=== PATIENT | female | born 1980 | race Caucasian/White ===

== ENCOUNTER 2023-11-12 12:45 | Inpatient (IN) | payer OTHER ==
[2023-11-12 13:42] VITALS: BMI 24.9
[2023-11-12] MEDS ORDERED: BUPRENORPHINE HCL 150 MCG, BUPRENORPHINE HCL 75 MCG BC PRN (15:37)
[2023-11-12] MEDS ORDERED: LOPERAMIDE HCL 2 MG CAPSULE PO PRN (15:37)
[2023-11-12] MEDS ORDERED: BENZOCAINE/MENTHOL (CHLORASEPTIC ) LOZENGE MM PRN (15:37)
[2023-11-12] MEDS ORDERED: MAG HYDROX/AL HYDROX/SIMETH 30 ML UNIT-DOSE CUP PO PRN (15:37)
[2023-11-12] MEDS ORDERED: BENZONATATE 200 MG CAPSULE PO PRN (15:37)
[2023-11-12] MEDS ORDERED: NALOXONE HCL (KLOXXADO) 8 MG SPRAY NS PRN (15:37)
[2023-11-12] MEDS ORDERED: BISMUTH SUBSALICYLATE 524 MG/30 ML PO PRN (15:37)
[2023-11-12] MEDS ORDERED: ACETAMINOPHEN 325 MG TABLET (FP) PO PRN (15:37)
[2023-11-12] MEDS ORDERED: ONDANSETRON *ODT* 4 MG TABLET SL PRN (15:37)
[2023-11-12] MEDS ORDERED: POLYETHYLENE GLYCOL (HEALTHYLAX) 3350 17 GM PACKET PO PRN (15:37)
[2023-11-12] MEDS ORDERED: DICYCLOMINE HCL 10 MG CAPSULE PO PRN (15:37)
[2023-11-12] MEDS ORDERED: guaiFENesin 600 MG TABLET.ER (FP) PO PRN (15:37)
[2023-11-12] MEDS ORDERED: NALOXONE HCL 0.4 MG/ML VIAL IM PRN (15:37)
[2023-11-12] MEDS ORDERED: IBUPROFEN 400 MG TABLET (FP) PO PRN (15:37)
[2023-11-12] MEDS: BUPRENORPHINE HCL 150 MCG, BUPRENORPHINE HCL 75 MCG BC ONE (17:08)
[2023-11-12] MEDS: PRENATAL VITAMINS W/ FOLIC ACID TABLET (FP) PO SCH (17:09)
[2023-11-12] MEDS: cloNIDine HCL 0.1 MG TABLET PO ONE (17:09)
[2023-11-12] MEDS: NICOTINE POLACRILEX 2 MG GUM BUC PRN (20:28)
[2023-11-12] MEDS: MELATONIN 5 MG TABLETS PO SCH (22:25)
[2023-11-12] MEDS: cloNIDine HCL 0.1 MG TABLET PO PRN (22:25)
[2023-11-12] MEDS: THIAMINE HCL 100 MG TABLET (FP) PO SCH (22:25)
[2023-11-12] MEDS: diazePAM 5 MG TABLET PO PRN (22:26)
[2023-11-13] MEDS ORDERED: BUPRENORPHINE HCL 150 MCG, BUPRENORPHINE HCL 75 MCG BC PRN
[2023-11-13] MEDS: BUPRENORPHINE HCL 150 MCG, BUPRENORPHINE HCL 75 MCG BC SCH (05:21)
[2023-11-13] MEDS: hydrOXYzine PAMOATE 25 MG CAPSULE (FP) PO PRN (10:17)
[2023-11-13 12:30] LABS: HEMATOCRIT 44.6 % (32.4-45.2); HEMOGLOBIN 14.6 GM/dL (10.7-15.3); MCH 31.4 pg (25.7-33.7); MCHC 32.8 g/dl (32.0-36.0); MEAN CELL VOLUME 95.8 fl (80-96); MEAN PLT VOLUME 8.5 fl (7.5-11.1); PLATELET COUNT 283 10^3/uL (134-434); RBC 4.66 M/mm3 (3.60-5.2); RDW 12.3 % (11.6-15.6); WHITE BLOOD COUNT 8.6 K/mm3 (4.0-10.0)
[2023-11-13 12:35] LABS: POTASSIUM 4.2 mmol/L (3.5-5.1)
[2023-11-13 12:38] LABS: CALCIUM 9.4 mg/dL (8.5-10.1)
[2023-11-13 12:39] LABS: ALBUMIN 3.6 g/dl (3.4-5.0); BLOOD UREA NITROGEN 11.8 mg/dL (7-18)
[2023-11-13 12:42] LABS: CREATININE 0.9 mg/dL (0.55-1.3)
[2023-11-13 12:44] LABS: BILIRUBIN,TOTAL 0.6 mg/dL (0.2-1)
[2023-11-13] MEDS ORDERED: FLU VACCINE (FLULAVAL) PF 60 MCG/0.5 ML SYRINGE 2023-2024 IM ONE (18:14)
[2023-11-13] MEDS: IBUPROFEN 600 MG TABLET (FP) PO PRN (19:27)
[2023-11-13] MEDS ORDERED: MAGNESIUM OXIDE 400 MG TABLET (FP) PO ONE (22:00)
[2023-11-13] MEDS ORDERED: traZODone HCL 50 MG TABLET (FP) PO ONE (22:00)
[2023-11-13] MEDS: MELATONIN 5 MG TABLETS PO SCH (22:27)
[2023-11-13] MEDS: cloNIDine HCL 0.1 MG TABLET PO PRN (22:28)
[2023-11-13] MEDS: MAGNESIUM OXIDE 400 MG TABLET (FP) PO ONE (23:26)
[2023-11-13] MEDS: hydrOXYzine PAMOATE 50 MG CAPSULE (FP) PO ONE (23:28)
[2023-11-14] MEDS: BUPRENORPHINE HCL 450 MCG FILM BC SCH (05:29)
[2023-11-14] MEDS: BUPRENORPHINE HCL 450 MCG FILM BC ONE (09:31)
[2023-11-14] MEDS: FLU VACCINE (FLULAVAL) PF 60 MCG/0.5 ML SYRINGE 2023-2024 IM ONE (12:12)
[2023-11-14] MEDS: METHOCARBAMOL 500 MG TABLET PO PRN (17:30)
[2023-11-14] MEDS: MAGNESIUM HYDROX 2400MG/30ML ORAL SUSPENSION 30 ML CUP PO PRN (18:32)
[2023-11-14] MEDS: PNEUMOC 20-VAL CONJ-DIP CRM/PF 0.5 ML SYRINGE IM ONE (19:49)
[2023-11-14] MEDS: SUVOREXANT 5 MG TABLET PO PRN (22:13)
[2023-11-15] MEDS: BUPRENORPHINE/NALOXONE 4 MG/1 MG FILM PACKET SL SCH (05:34)
[2023-11-15] MEDS: PNEUMOC 20-VAL CONJ-DIP CRM/PF 0.5 ML SYRINGE IM ONE (12:02)
[2023-11-15] MEDS: METHOCARBAMOL 750 MG TAB PO PRN (17:33)
[2023-11-15 21:34] VITALS: TEMP 97.5
[2023-11-16] MEDS: METHOCARBAMOL 500 MG TABLET PO PRN (01:55)
[2023-11-16] MEDS: BUPRENORPHINE/NALOXONE 8 MG/2 MG FILM PACKET SL ONE (05:31)
[2023-11-16 06:45] VITALS: BP 123/94; PULSE 101; RESP 16
== END 2023-11-16 09:30 | disposition home or self-care (01) | DRG 897 ==
LOC: YASAS 12:45 → Y6N 16:45
PROVIDERS: ADMIT Allergy & Immunology; ATTEND Surgery
PROC: HZ2ZZZZ Detoxification Services for Substance Abuse Treatment (ICD-10-PCS; principal; 2023-11-12)
DX: F11.23 Opioid dependence with withdrawal (principal); F14.20 Cocaine dependence, uncomplicated; F10.230 Alcohol dependence with withdrawal, uncomplicated; F12.20 Cannabis dependence, uncomplicated; F17.210 Nicotine dependence, cigarettes, uncomplicated; J45.909 Unspecified asthma, uncomplicated; Z86.19 Personal history of other infectious and parasitic diseases
CPT/HCPCS: 36415; 80053; 80305; 81025; 85027; 86593; 86780; 87635; 90677; 90686; 93005; 93010; G0008